=== PATIENT | female | born 1990 | race Caucasian/White ===

== ENCOUNTER 2017-01-21 05:31 | Day surgery (SDC) | payer OTHER ==
[2017-01-14 09:32] LABS: HEMOGLOBIN 13.2 g/dL (12.0-15.5); HGB HCT DIFFERENCE -2.4; MEAN CORPUSCULAR HEMOGLOBIN 24.4 pg (27.0-33.4); MEAN CORPUSCULAR HGB CONC 31.3 g/dL (32.0-36.0); MEAN CORPUSCULAR VOLUME 78 fl (80-97); RED BLOOD COUNT 5.38 10^6/uL (3.72-5.28); RED CELL DISTRIBUTION WIDTH 15.4 % (11.5-14.0); WHITE BLOOD COUNT 8.3 10^3/uL (4.0-10.5)
[2017-01-14 09:49] LABS: ANION GAP 12 (5-19); BLOOD UREA NITROGEN 12 mg/dL (7-20); CALCIUM 9.1 mg/dL (8.4-10.2); CARBON DIOXIDE 22 mmol/L (22-30); CHLORIDE 107 mmol/L (98-107); CREATININE RESULT 0.76 mg/dL (0.52-1.25); GLUCOSE 119 mg/dL (75-110); SODIUM 140.7 mmol/L (137-145)
[~2017-01-21 05:31] MED LIST: LIDOCAINE 0.5% INJ-PF (5 MG/ML) 50 ML SDV INJ PRN; RINGERS SOLUTION,LACTATED 1,000 ML IV PRN
[2017-01-21] MEDS ORDERED: BACITRACIN INJ 50,000 UNIT VIAL ONE (07:11)
[2017-01-21] MEDS ORDERED: LIDOCAINE 0.5% INJ-PF (5 MG/ML) 50 ML SDV ONE (07:11)
[2017-01-21] MEDS ORDERED: BUPIVACAINE HCL 0.25 % INJ/PF (2.5 MG/1 ML) 30 ML VIAL ONE (07:11)
[2017-01-21] MEDS ORDERED: POLYMYXIN B SULFATE INJ 500000 UNIT VIAL ONE (07:11)
[2017-01-21] MEDS ORDERED: KETAMINE HCL INJ 500 MG/10 ML VIAL ONE (07:41)
[2017-01-21] MEDS ORDERED: MIDAZOLAM 2 MG/2 ML INJ ONE (07:42)
[2017-01-21] MEDS ORDERED: DEXMEDETOMIDINE INJ 80 MCG/20 ML VIAL IV ONE (07:42)
[2017-01-21] MEDS ORDERED: PROPOFOL INJ 200 MG/20 ML VIAL IV ONE (07:42)
[2017-01-21] MEDS ORDERED: MORPHINE SULFATE 10 MG/ML INJ ONE (07:43)
[2017-01-21] MEDS ORDERED: CEFAZOLIN INJ 1 GM VIAL ONE (08:17)
--- NOTE | 2017-01-21 08:54 | PDOC DISCHARGE SUMMARY ---
Discharge Summary (SDC) - Discharge Final Diagnosis: Large symptomatic lipoma of the anterior abdominal wall. Date of Surgery: 01/21/17 Discharge Date: 01/21/17 Condition: Good Treatment or Instructions: Discharge home [after recovery per ASU criteria]. Diet [renal],as tolerated, when fully awake advance as tolerated. Activities within moderation encouraged. Medications per medication reconciliation sheet. Percocet prescription. Follow up in my office by appointment in about [1 week]. Call for appointment. Leave wounds [covered], [keep clean and dry, until office visit in 1 week]. Hold of on school/work [until evaluation in office]. May shower [in 48 hrs], [try to keep operated area as dry as possible]. Prescriptions: Oxycodone HCl/Acetaminophen [Percocet 5-325 mg Tablet] 1 tab PO ASDIR PRN #7 tab PRN Reason: Referrals: ROSSANA JC PA-C [Primary Care Provider] - Respiratory Treatments at Home: Deep Breathing/Coughing Discharge Activity: Activity As Tolerated Report the Following to Your Physician Immediately: Shortness of Breath, Unusual Bleeding, Drainage-Yellow
--- NOTE | 2017-01-21 09:39 | Operative Report ---
Operative Report DATE OF SURGERY: 01/21/17 PREOPERATIVE DIAGNOSIS: #1 abdominal wall lipoma, large, symptomatic. POSTOPERATIVE DIAGNOSIS: #1 abdominal wall lipoma, large, symptomatic. OPERATION: Resection of large abdominal wall lipoma. SURGEON: MARU BOSWELL LABORER PLUMBING: None ANESTHESIA: LMAC TISSUE REMOVED OR ALTERED: Large lipoma of the abdominal wall. COMPLICATIONS: None ESTIMATED BLOOD LOSS: 10 mL. INTRAOPERATIVE FINDINGS: Of a large subcutaneous lipoma situated in the left upper abdomen. Measuring in aggregate 10 x 10 x 6 cm. Lobulated. Excised to satisfaction. PROCEDURE: PROCEDURE: The left upper abdomen was prepared with [chlorhexidine] and draped out with sterile linen. After the"universal time-out", in which it was confirmed that the patient [did receive antibiotic], the procedure commenced. The patient was appropriately anesthetized. The lesion was sketched in marking ink, as well as the proposed incision. A dilute solution of local anesthesia was generously infiltrated in the skin and subcutaneous tissues above and around the mass. An incision was made transversely . This went through to the subcutaneous tissues. Dissection now proceeded in the subcutaneous tissue circumferentially around the mass and then finally posterior to it. In this way the entire mass was [removed and submitted for pathology . . The wound was irrigated with [saline] . Meticulous hemostasis was secured in the wound. This was done using [cautery and also interrupted sutures of 3-0 PDS]. [The wound was irrigated once more with sterile saline solution]. The wound was now closed using [a single layer of interrupted vertical mattress sutures. These were of 3-0 PDS]. A sterile dressing was applied and the procedure concluded.
[2017-01-21] MEDS ORDERED: OXYCODONE-ACETAMINOPHEN 5-325 MG TABLET PO PRN (10:00)
[2017-01-21] MEDS ORDERED: ONDANSETRON HCL INJ/PF 4 MG/2 ML SDV ONE (10:41)
[2017-01-21] MEDS ORDERED: METOCLOPRAMIDE HCL INJ/PF 10 MG/2 ML SDV ONE (10:41)
[2017-01-21] MEDS ORDERED: GLYCOPYRROLATE INJ 0.4 MG/2 ML VIAL ONE (10:41)
[2017-01-21] MEDS ORDERED: SUCCINYLCHOLINE CHLORIDE INJ 200 MG/10 ML VIAL ONE (10:41)
[2017-01-21] MEDS ORDERED: LIDOCAINE 2% INJ-PF (20 MG/ML) 10 ML AMPUL ONE (10:41)
[2017-01-21] MEDS ORDERED: ONDANSETRON 4 MG TAB.RAPDIS ONE (11:14)
[2017-01-21 11:58] VITALS: BP 126/79
== END 2017-01-21 12:45 | disposition home or self-care (01) ==
LOC: OROUT 05:31
PROVIDERS: ATTEND Surgery
PROC: 0JB80ZZ Excision of Abdomen Subcutaneous Tissue and Fascia, Open Approach (ICD-10-PCS; principal; 2017-01-21 07:30)
DX: D17.9 Benign lipomatous neoplasm, unspecified (principal); I83.899 Varicose veins of unspecified lower extremity with other complications; G43.909 Migraine, unspecified, not intractable, without status migrainosus; F17.210 Nicotine dependence, cigarettes, uncomplicated; Z79.899 Other long term (current) drug therapy; D17.1 Benign lipomatous neoplasm of skin and subcutaneous tissue of trunk
CPT/HCPCS: 36415; 85027; 81025; 80048; 88305 ×2; 11406; J2250; J3490 ×5; J0690; S0119; J2765; J2270; J0330; J2405; J2704; 400

== ENCOUNTER 2017-08-08 20:34 | Emergency (ER) | payer OTHER ==
[2017-08-08] MEDS ORDERED: DIPHENHYDRAMINE HCL 50 MG/ML VIAL IV ONE (21:57)
[2017-08-08] MEDS ORDERED: NORMAL SALINE 1000 ML 1,000 ML IV ONE (21:57)
[2017-08-08] MEDS ORDERED: PROCHLORPERAZINE EDISYLATE INJ 10 MG/2 ML VIAL IV ONE (21:57)
[2017-08-08] MEDS ORDERED: KETOROLAC TROMETHAMINE 60 MG/2 ML SDV IV ONE (21:57)
--- NOTE | 2017-08-08 21:57 | ER Document Report ---
ED Headache - General Chief Complaint: Headache >24 hrs old Stated Complaint: NECK/SHOULDER/HEAD PAIN Time Seen by Provider: 08/08/17 21:46 Mode of Arrival: Ambulatory Information source: Patient Notes: Patient is a 27-year-old female with a history of migraines who presents to the ER today for 5 days of a migraine. Patient was seen 5 days ago at urgent care migraine and was diagnosed with a sinus infection, given Augmentin. She does state she had congestion and sinus pressure at that time. She states that the congestion and sinus pressure are gone now but the headache has remained. She takes no prescription medications for her migraines, has tried ibuprofen and Tylenol without relief. She states that now the pain is radiating down the left side of her neck into her left shoulder. She states that it feels "like a vice around the head." She is having pressure behind her right eye and light sensitivity. She denies any sound sensitivity, nausea, vomiting or blurred vision. TRAVEL OUTSIDE OF THE [place] IN LAST 30 DAYS: No - Related Data Allergies/Adverse Reactions: iodine [Iodine] Allergy (Verified 08/08/17 20:37) seafood Allergy (Uncoded 08/08/17 20:37) difficulty breathing and hives Past Medical History - General Information source: Patient - Social History Smoking Status: Unknown if Ever Smoked Family History: Arthritis, CAD, CVA, DM, Hyperlipidemia, Hypertension, Malignancy, Thyroid Disfunction - Past Medical History Cardiac Medical History: Reports: Hx Hypercholesterolemia Denies: Hx Coronary Artery Disease, Hx Heart Attack, Hx Hypertension Pulmonary Medical History: Reports: Hx Pneumonia Denies: Hx Asthma, Hx Bronchitis, Hx COPD Neurological Medical History: Denies: Hx Cerebrovascular Accident, Hx Seizures GI Medical History: Reports: Hx Gastroesophageal Reflux Disease Musculoskeltal Medical History: Denies Hx Arthritis, Reports Hx Musculoskeletal Deformity - Scoliosis, Reports Hx Musculoskeletal Trauma - torn MCL in right knee - Immunizations Immunizations up to date: Yes Hx Diphtheria, Pertussis, Tetanus Vaccination: Yes Review of Systems - Review of Systems Constitutional: No symptoms reported EENT: No symptoms reported Cardiovascular: No symptoms reported Respiratory: No symptoms reported Gastrointestinal: No symptoms reported Genitourinary: No symptoms reported Female Genitourinary: No symptoms reported Musculoskeletal: No symptoms reported Skin: No symptoms reported Hematologic/Lymphatic: No symptoms reported Neurological/Psychological: See HPI Physical Exam - Notes Notes: PHYSICAL EXAMINATION: GENERAL: Uncomfortable appearing, lying in dark room, but in no acute distress. HEAD: Atraumatic, normocephalic. EYES: Light-sensitive, pupils equal round and reactive to light, extraocular movements intact, sclera anicteric, conjunctiva are normal. ENT: ear canals without erythema or foreign body, TMs pearly nelson with good bony landmarks, nares patent, oropharynx clear without exudates. Moist mucous membranes. NECK: Normal range of motion, supple without lymphadenopathy LUNGS: CTAB and equal. No wheezes rales or rhonchi. HEART: Regular rate and rhythm without murmurs ABDOMEN: Soft, no tenderness. No guarding, no rebound EXTREMITIES: Normal range of motion, no pitting edema. No cyanosis. NEUROLOGICAL: Cranial nerves grossly intact. Normal sensory/motor exams. PSYCH: Normal mood, normal affect. SKIN: Warm, Dry, normal turgor, no rashes or lesions noted Course - Re-evaluation Re-evalutation: 08/08/17 23:53 Patient states she feels better after IV fluids, Benadryl, Compazine and Toradol. Patient will go home with a prescription for Phenergan in case she needs something else for the migraine when she gets home. Discharge - Discharge Clinical Impression: Migraine Qualifiers: Migraine type: unspecified Status migrainosus presence: without status migrainosus Intractability: not intractable Qualified Code(s): G43.909 - Migraine, unspecified, not intractable, without status migrainosus Condition: Stable Disposition: HOME, SELF-CARE Additional Instructions: Return immediately for any new or worsening symptoms. Follow up with primary care provider, call tomorrow to make followup appointment. Prescriptions: Promethazine HCl [Phenergan 25 mg Tablet] 1 - 2 tab PO Q6H PRN #15 tablet PRN Reason: Forms: Return to Work
[2017-08-09 01:38] VITALS: BP 127/77
== END 2017-08-09 00:19 | disposition home or self-care (01) ==
LOC: ER 20:34
DX: G43.909 Migraine, unspecified, not intractable, without status migrainosus (principal); M54.2 Cervicalgia; R09.81 Nasal congestion; M25.512 Pain in left shoulder; H57.11 Ocular pain, right eye
CPT/HCPCS: 99284; 96361; 96374; 96375; J1200; J1885; J0780; J7030

== ENCOUNTER 2017-08-16 07:11 | Emergency (ER) | payer OTHER ==
[2017-08-16] MEDS ORDERED: ASPIRIN 81 MG TABLET, CHEWABLE PO ONE (07:39)
--- NOTE | 2017-08-16 08:04 | ER Document Report ---
ED General - General Chief Complaint: Chest Pain Stated Complaint: CHEST PAIN Time Seen by Provider: 08/16/17 07:34 Mode of Arrival: Ambulatory Information source: Patient Notes: Patient presents to the emergency department with complaints of midsternal right -sided chest pain, epigastric pain. Reports symptoms started yesterday. She reports it started after she was eating pork at work. Reports she has a cough or runny nose. Denies fever vomiting diarrhea. Reports she feels itchy all over. Reports she was taking Augmentin for sinus infection and then she is now taking Bactrim for an abscess on the top of her head. She started taking this on . No rashes noted. Patient speaking in clear voice. Patient reports she is unsure of her father's family history but grandma had cardiac disease. Mothers side of family has had gallbladder issues. TRAVEL OUTSIDE OF THE [place] IN LAST 30 DAYS: No - HPI Onset: Yesterday Quality of pain: Achy Severity: Mild Associated symptoms: None Exacerbated by: Denies Relieved by: Denies Similar symptoms previously: No Recently seen / treated by doctor: No - Related Data Allergies/Adverse Reactions: iodine [Iodine] Allergy (Verified 08/08/17 20:37) seafood Allergy (Uncoded 08/08/17 20:37) difficulty breathing and hives Past Medical History - General Information source: Patient Last Menstrual Period: last week - Social History Smoking Status: Unknown if Ever Smoked Cigarette use (# per day): No Frequency of alcohol use: None Drug Abuse: None Occupation: [employer] Lives with: Family Family History: Arthritis, CAD, CVA, DM, Hyperlipidemia, Hypertension, Malignancy, Thyroid Disfunction - Past Medical History Cardiac Medical History: Reports: Hx Hypercholesterolemia Denies: Hx Coronary Artery Disease, Hx Heart Attack, Hx Hypertension Pulmonary Medical History: Reports: Hx Pneumonia Denies: Hx Asthma, Hx Bronchitis, Hx COPD Neurological Medical History: Reports: Hx Migraine. Denies: Hx Cerebrovascular Accident, Hx Seizures Renal/ Medical History: Denies: Hx Peritoneal Dialysis GI Medical History: Reports: Hx Gastroesophageal Reflux Disease Musculoskeltal Medical History: Denies Hx Arthritis, Reports Hx Musculoskeletal Deformity - Scoliosis, Reports Hx Musculoskeletal Trauma - torn MCL in right knee Surgical Hx: Negative - Immunizations Immunizations up to date: Yes Hx Diphtheria, Pertussis, Tetanus Vaccination: Yes Review of Systems - Review of Systems Notes: Review HPI for review of systems., All other systems negative Physical Exam - Vital signs Vitals: Temp Pulse Resp BP Pulse Ox 98.7 F 74 20 130/70 H 98 08/16/17 07:16 08/16/17 07:16 08/16/17 07:16 08/16/17 07:16 08/16/17 07:16 - Notes Notes: PHYSICAL EXAMINATION: GENERAL: Well-appearing and in no acute distress HEAD: Atraumatic, normocephalic. EYES: Pupils equal round , extraocular movements intact, sclera anicteric, conjunctiva are normal. ENT: nares patent, Moist mucous membranes. NECK: Normal range of motion, supple without lymphadenopathy LUNGS: CTAB and equal. No wheezes rales or rhonchi. HEART: Regular rate and rhythm without murmurs ABDOMEN: Soft,RUQ ttp. No guarding, no rebound BACK: Denies pain EXTREMITIES: Normal range of motion, no pitting edema. No cyanosis. NEUROLOGICAL: Cranial nerves grossly intact. Normal sensory/motor exams. PSYCH: Normal mood, normal affect. SKIN: Warm, Dry, normal turgor, no rashes or lesions noted, top of head with slight firm swelling, no pustule, no obvious abscess Course - Re-evaluation Re-evalutation: 08/16/17 Labs unremarkable ultrasound negative chest x-ray negative. Patient was instructed on ibuprofen importance of follow-up with primary care provider. She verbalized understanding tall instructions. - Vital Signs Vital signs: Temp Pulse Resp BP Pulse Ox 98.7 F 74 20 109/70 97 08/16/17 07:16 08/16/17 07:16 08/16/17 10:11 08/16/17 10:11 08/16/17 10:11 - Laboratory Result Diagrams: 08/16/17 09:17 08/16/17 09:17 Laboratory results interpreted by me: 08/16/17 08/16/17 08/16/17 08:10 09:17 09:17 RBC 5.29 H MCV 76 L MCH 24.7 L RDW 15.9 H Chloride 109 H Carbon Dioxide 21 L Urine Ascorbic Acid 40 H - Diagnostic Test Radiology reviewed: Image reviewed, Reports reviewed - Diagnostic report text EXAM DESCRIPTION: U/S ABDOMEN LIMITED W/O DOP COMPLETED DATE/TIME: 08/16/2017 9 :16 am REASON FOR STUDY: chest pain,RUQ pain COMPARISON: 09/22/2014 TECHNIQUE: Dynamic and static grayscale images acquired of the right upper quadrant and recorded on PACS. Additional selected color Doppler and spectral images recorded. LIMITATIONS: Study limited due to acoustical interference from fat or from air in the bowel. FINDINGS: PANCREAS: Parts or all of the pancreas poorly seen secondary to acoustical interference from fat or from air in the bowel. LIVER: Echotexture is coarse with increased echogenicity consistent with fatty infiltration. No masses. LIVER VASCULATURE: Normal directional flow of the main portal vein and hepatic veins. GALLBLADDER: No stones. Normal wall thickness. No pericholecystic fluid. ULTRASOUND-DETECTED WILLETT'S SIGN: Negative. INTRAHEPATIC DUCTS AND COMMON DUCT: CBD and intrahepatic ducts normal caliber. No filling defects. INFERIOR VENA CAVA: Normal flow. AORTA: No aneurysm. RIGHT KIDNEY: Normal size. Normal echogenicity. No solid or suspicious masses. No hydronephrosis. No calcifications. PERITONEAL CAVITY AND RIGHT PLEURAL SPACE: No ascites or effusions. OTHER: No other significant finding. IMPRESSION: FATTY LIVER. PANCREAS PARTIALLY OR COMPLETELY OBSCURED. OTHERWISE NORMAL RIGHT UPPER QUADRANT ULTRASOUND EXAM DESCRIPTION: CHEST PA/LAT COMPLETED DATE/TIME: 08/16 8:34 am REASON FOR STUDY: chest pain COMPARISON: 07/08/2016 EXAM PARAMETERS: NUMBER OF VIEWS: two views TECHNIQUE: Digital Frontal and Lateral radiographic views of the chest acquired. RADIATION DOSE: NA LIMITATIONS: none FINDINGS: LUNGS AND PLEURA: No opacities, masses or pneumothorax. No pleural effusion. MEDIASTINUM AND HILAR STRUCTURES: No masses or contour abnormalities. HEART AND VASCULAR STRUCTURES: Heart normal size. No evidence for failure. BONES: No acute findings. HARDWARE: None in the chest. OTHER: No other significant finding. IMPRESSION: NO SIGNIFICANT RADIOGRAPHIC FINDING IN THE CHEST. - EKG Interpretation by Pr EKG shows normal: Sinus rhythm Discharge - Discharge Clinical Impression: Epigastric pain Chest pain Qualifiers: Chest pain type: unspecified Qualified Code(s): R07.9 - Chest pain, unspecified Condition: Stable Disposition: HOME, SELF-CARE Instructions: Chest Pain of Unclear Cause ([facility]), Evaluation of Upper Abdominal Pain ([facility]), Low-Fat Diet ([facility]) Additional Instructions: *You have been evaluated for abdominal pain, chest pains *Liquid diet, advance to low fat diet as tolerated *Follow up with a primary care provider Friday *Return to ED for worsening condition, changes, needs *Return to ED if not better in 24 hours Forms: Return to Work Referrals: ROSSANA JC PA-C [Primary Care Provider] - 08/18/17
--- NOTE | 2017-08-16 08:42 | RADIOLOGY REPORT (SQ) ---
EXAM DESCRIPTION: CHEST PA/LAT COMPLETED DATE/TIME: 08/16/2017 8:34 am REASON FOR STUDY: chest pain COMPARISON: 07/08/2016 EXAM PARAMETERS: NUMBER OF VIEWS: two views TECHNIQUE: Digital Frontal and Lateral radiographic views of the chest acquired. RADIATION DOSE: NA LIMITATIONS: none FINDINGS: LUNGS AND PLEURA: No opacities, masses or pneumothorax. No pleural effusion. MEDIASTINUM AND HILAR STRUCTURES: No masses or contour abnormalities. HEART AND VASCULAR STRUCTURES: Heart normal size. No evidence for failure. BONES: No acute findings. HARDWARE: None in the chest. OTHER: No other significant finding. IMPRESSION: NO SIGNIFICANT RADIOGRAPHIC FINDING IN THE CHEST. TECHNICAL DOCUMENTATION: JOB ID: [id number] [employer]- All Rights Reserved
--- NOTE | 2017-08-16 09:27 | RADIOLOGY REPORT (SQ) ---
EXAM DESCRIPTION: U/S ABDOMEN LIMITED W/O DOP COMPLETED DATE/TIME: 08/16/2017 9:16 am REASON FOR STUDY: chest pain,RUQ pain COMPARISON: 09/22/2014 TECHNIQUE: Dynamic and static grayscale images acquired of the right upper quadrant and recorded on PACS. Additional selected color Doppler and spectral images recorded. LIMITATIONS: Study limited due to acoustical interference from fat or from air in the bowel. FINDINGS: PANCREAS: Parts or all of the pancreas poorly seen secondary to acoustical interference fr om fat or from air in the bowel. LIVER: Echotexture is coarse with increased echogenicity consistent with fatty infiltration. No mass es. LIVER VASCULATURE: Normal directional flow of the main portal vein and hepatic veins. GALLBLADDER: No stones. Normal wall thickness. No pericholecystic fluid. ULTRASOUND-DETECTED WILLETT'S SIGN: Negative. INTRAHEPATIC DUCTS AND COMMON DUCT: CBD and intrahepatic ducts normal caliber. No filling defects. INFERIOR VENA CAVA: Normal flow. AORTA: No aneurysm. RIGHT KIDNEY: Normal size. Normal echogenicity. No solid or suspicious masses. No hydronephrosis. No calcifications. PERITONEAL CAVITY AND RIGHT PLEURAL SPACE: No ascites or effusions. OTHER: No other significant finding. IMPRESSION: FATTY LIVER. PANCREAS PARTIALLY OR COMPLETELY OBSCURED. OTHERWISE NORMAL RIGHT UPPER NGUYEN DRANT ULTRASOUND. TECHNICAL DOCUMENTATION: JOB ID: [id number] [employer]- All Rights Reserved
[2017-08-16 09:44] LABS: ABSOLUTE EOSINOPHILS # (AUTO) 0.2 10^3/uL (0.0-0.6); ABSOLUTE LYMPHOCYTES (AUTO) 1.9 10^3/uL (0.5-4.7); ABSOLUTE MONOCYTES (AUTO) 0.5 10^3/uL (0.1-1.4); ABSOLUTE NEUT (AUTO) 4.6 10^3/uL (1.7-8.2); BASOPHILS % (AUTO) 0.6 % (0-2); EOSINOPHILS % (AUTO) 2.2 % (0-6); HEMATOCRIT 40.1 % (36.0-47.0); HEMOGLOBIN 13.1 g/dL (12.0-15.5); LYMPHOCYTES % (AUTO) 25.7 % (13-45); MEAN CORPUSCULAR HEMOGLOBIN 24.7 pg (27.0-33.4); MEAN CORPUSCULAR HGB CONC 32.6 g/dL (32.0-36.0); MEAN CORPUSCULAR VOLUME 76 fl (80-97); MONOCYTES % (AUTO) 7.3 % (3-13); PLATELET COUNT 281 10^3/uL (150-450); RED BLOOD COUNT 5.29 10^6/uL (3.72-5.28); RED CELL DISTRIBUTION WIDTH 15.9 % (11.5-14.0); SEGMENTED NEUTROPHILS % (AUTO) 64.2 % (42-78); TOTAL CELLS COUNTED % (AUTO) 100 %; WHITE BLOOD COUNT 7.2 10^3/uL (4.0-10.5)
[2017-08-16 09:47] LABS: APPEARANCE,URINE CLEAR; BILIRUBIN,URINE NEGATIVE (NEGATIVE); COLOR,URINE YELLOW; GLUCOSE, URINE NEGATIVE (NEGATIVE); KETONES,URINE NEGATIVE (NEGATIVE); LEUKOCYTE ESTERASE,URINE NEGATIVE (NEGATIVE); NITRITE,URINE NEGATIVE (NEGATIVE); PROTEIN,URINE NEGATIVE (NEGATIVE); URINE SPECIFIC GRAVITY 1.014; UROBILINOGEN,URINE NEGATIVE mg/dL (<2.0)
[2017-08-16 09:57] LABS: ALANINE AMINOTRANSFERASE 37 U/L (9-52); ALKALINE PHOSPHATASE 58 U/L (38-126); ANION GAP 10 (5-19); ASPARTATE AMINO TRANSFERASE 19 U/L (14-36); BILIRUBIN,DIRECT 0.2 mg/dL (0.0-0.4); BILIRUBIN,TOTAL 0.3 mg/dL (0.2-1.3); BLOOD UREA NITROGEN 10 mg/dL (7-20); CALCIUM 9.7 mg/dL (8.4-10.2); CARBON DIOXIDE 21 mmol/L (22-30); CHLORIDE 109 mmol/L (98-107); GLUCOSE 83 mg/dL (75-110); POTASSIUM 4.3 mmol/L (3.6-5.0); SODIUM 139.9 mmol/L (137-145); TOTAL PROTEIN 6.8 g/dL (6.3-8.2)
--- NOTE | 2017-08-16 10:19 | EKG REPORT ---
SEVERITY:- NORMAL ECG - SINUS RHYTHM : Confirmed by: Mendez Watson 16-Aug-2017 10:17:23
[2017-08-16 10:37] VITALS: BP 109/70
== END 2017-08-16 10:43 | disposition home or self-care (01) ==
LOC: ER 07:11
DX: R07.9 Chest pain, unspecified (principal); R10.13 Epigastric pain; R05 Cough; R09.89 Other specified symptoms and signs involving the circulatory and respiratory systems
CPT/HCPCS: 36415; 71046; 76705; 80053; 81001; 84703; 85025; 93005; 93010; 99285

== ENCOUNTER → 2017-11-21 | Outpatient (CLI) | payer OTHER ==
--- NOTE | 2017-11-22 15:17 | RADIOLOGY REPORT (SQ) ---
EXAM DESCRIPTION: MRI RT LOWER JOINT WITHOUT COMPLETED DATE/TIME: 11/21/2017 5:10 pm REASON FOR STUDY: M25.561 PAIN IN RIGHT KNEE M25.561 PAIN IN RIGHT KNEE COMPARISON: None. TECHNIQUE: Rightknee images acquired and stored on PACS. Multiplanar images include fat sensitive s equences as T1, water sensitive sequences as FST2 or STIR, cartilage sensitive sequences as FSPD, and gradient echo sequences. LIMITATIONS: None. FINDINGS: JOINT AND BURSAE: No effusion. BONE CORTEX AND MARROW: No alteration of signal to suggest marrow replacement. No worrisome bone lesi ons. No occult fracture. ACL: Intact. No degeneration or ganglion cyst. PCL: Intact. MCL: Intact. No periligamentous edema or fluid. LCL: Intact. No periligamentous edema or fluid. MEDIAL MENISCUS: No tears. No abnormal signal. LATERAL MENISCUS: No tears. No abnormal signal. MEDIAL COMPARTMENT: Heterogeneous signal in the cartilage. Small osteophytes femoral condyle. LATERAL COMPARTMENT: Cartilage preserved. No bone bruises or reactive marrow edema. No osteophytes. PATELLA: No chondromalacia. No subchondral cysts. Medial and lateral retinacula intact. EXTENSOR MECHANISM: Intact. Quadriceps and patella tendons normal. SOFT TISSUES: Adjacent muscles and subcutaneous tissues normal. Normal flow void in popliteal artery and vein. OTHER: No other significant finding. IMPRESSION: Chondromalacia medial compartment. No acute findings. TECHNICAL DOCUMENTATION: JOB ID: [id number]- All Rights Reserved Reading location - IP[facility]workstation name: [facility]
== END ==
LOC: RAD 16:16
PROVIDERS: ATTEND Orthopaedic Surgery
DX: M25.561 Pain in right knee (principal); M22.41 Chondromalacia patellae, right knee

== ENCOUNTER 2018-10-21 04:03 | Emergency (ER) | payer OTHER ==
[2018-10-21] MEDS ORDERED: LIDOCAINE 4% TOPICAL SOLN 50 ML TOP ONE (05:04)
[2018-10-21] MEDS ORDERED: POLYMYXIN B SULFATE/TMP OPH SOLN (10 ML/ER DISP) OD ONE (06:05)
--- NOTE | 2018-10-21 06:16 | ER Document Report ---
ED Foreign Body - General Chief Complaint: Foreign Body in Ear Stated Complaint: BUG IN EAR Time Seen by Provider: 10/21/18 04:38 Primary Care Provider: LUX CAN MD [ASSOCIATE] - Follow up as needed Notes: Patient is a 28-year-old female presents to the emergency department for which she thinks is a foreign body in her right ear. Patient states she woke up this morning with a scratchy sensation in her right ear. States she feels as though something is moving. Patient states she tried to stick Q-tips in her right ear but continues with the foreign body sensation in her right ear so she presents to the emergency room. Past medical history: None Medications: None Allergies: Shellfish TRAVEL OUTSIDE OF THE [place] IN LAST 30 DAYS: No - Related Data Allergies/Adverse Reactions: iodine [Iodine] Allergy (Verified 08/08/17 20:37) seafood Allergy (Uncoded 08/08/17 20:37) difficulty breathing and hives Past Medical History - General Information source: Patient - Social History Smoking Status: Never Smoker Chew tobacco use (# tins/day): No Frequency of alcohol use: None Drug Abuse: None Family History: Arthritis, CAD, CVA, DM, Hyperlipidemia, Hypertension, Malignancy, Thyroid Disfunction Patient has suicidal ideation: No Patient has homicidal ideation: No - Past Medical History Cardiac Medical History: Reports: Hx Hypercholesterolemia Denies: Hx Coronary Artery Disease, Hx Heart Attack, Hx Hypertension Pulmonary Medical History: Reports: Hx Pneumonia Denies: Hx Asthma, Hx Bronchitis, Hx COPD Neurological Medical History: Reports: Hx Migraine. Denies: Hx Cerebrovascular Accident, Hx Seizures Renal/ Medical History: Denies: Hx Peritoneal Dialysis GI Medical History: Reports: Hx Gastroesophageal Reflux Disease Musculoskeletal Medical History: Denies Hx Arthritis, Reports Hx Musculoskeletal Deformity - Scoliosis, Reports Hx Musculoskeletal Trauma - torn MCL in right knee - Immunizations Immunizations up to date: Yes Hx Diphtheria, Pertussis, Tetanus Vaccination: Yes Review of Systems - Review of Systems Constitutional: No symptoms reported EENT: See HPI Cardiovascular: No symptoms reported Respiratory: No symptoms reported Gastrointestinal: No symptoms reported Genitourinary: No symptoms reported Female Genitourinary: No symptoms reported Musculoskeletal: No symptoms reported Skin: No symptoms reported Hematologic/Lymphatic: No symptoms reported Neurological/Psychological: No symptoms reported Physical Exam - Vital signs Vitals: Temp Pulse Resp BP Pulse Ox 98.4 F 72 14 122/66 99 10/21/18 04:09 10/21/18 04:09 10/21/18 04:09 10/21/18 04:09 10/21/18 04:09 - Notes Notes: GENERAL: Alert, interacts well. No acute distress. HEAD: Normocephalic, atraumatic. EYES: Pupils equal, round, and reactive to light. Extraocular movements intact. ENT: Oral mucosa moist, tongue midline. Nares patent, TM's intact, left TM nonerythematous, nonbulging. Canal within normal limits. Right TM nonerythematous, nonbulging. There does appear to be a small insect in the right canal with its antennae moving. NECK: Full range of motion. Supple. Trachea midline. LUNGS: Clear to auscultation bilaterally, no wheezes, rales, or rhonchi. No respiratory distress. HEART: Regular rate and rhythm. No murmur ABDOMEN: Soft, non-tender. Non-distended. Bowel sounds present in all 4 quadrants. EXTREMITIES: Moves all 4 extremities spontaneously. No edema, normal radial and dorsalis pedis pulses bilaterally. No cyanosis. BACK: no cervical, thoracic, lumbar midline tenderness. No saddle anesthesia, normal distal neurovascular exam. NEUROLOGICAL: Alert and oriented x3. Normal speech. cranial nerves II through XII grossly intact. PSYCH: Normal affect, normal mood. SKIN: Warm, dry, normal turgor. No rashes or lesions noted. Course - Re-evaluation Re-evalutation: 10/21/18 06:11 Lidocaine 4% was placed in the right ear canal to kill the insect. Right canal was then flushed multiple times by nursing staff. Upon reexamination of the right ear canal there does not appear to be any insect or other foreign bodies. Patient's eardrum does appear to not be erythematous but is nonbulging. Discussed use of antibiotic eardrops as prophylactic for infection. Patient voices understanding is stable for discharge. Close return precautions discussed. - Vital Signs Vital signs: Temp Pulse Resp BP Pulse Ox 98.4 F 72 14 122/66 99 10/21/18 04:09 10/21/18 04:09 10/21/18 04:09 10/21/18 04:09 10/21/18 04:09 Discharge - Discharge Clinical Impression: Foreign body in right ear, initial encounter Condition: Stable Disposition: HOME, SELF-CARE Instructions: Foreign Body ([facility]) Additional Instructions: He has been seen and treated in the emergency department for a foreign body in your right ear. I do believe we have been able to flush out the insect. I am going to put you on prophylactic antibiotic eardrops as the ear canal is very susceptible to infection after being irritated. Please make sure you use drops as prescribed and follow-up with your primary care provider in the next 24-48 hours for someone else to examine your eardrum. Please return to the emergency room should you have any other concerning symptoms. Prescriptions: Polymyxin B Sulfate/Tmp [Polytrim Oph Soln 10 ml] 1 dose AD Q6 #1 bottle Referrals: LUX CAN MD [ASSOCIATE] - Follow up as needed
[2018-10-21 06:50] VITALS: BP 122/82
== END 2018-10-21 06:50 | disposition home or self-care (01) ==
LOC: ER 04:03
DX: T16.1XXA Foreign body in right ear, initial encounter (principal); X58.XXXA Exposure to other specified factors, initial encounter
CPT/HCPCS: 99282; J3490 ×2

== ENCOUNTER 2019-02-26 07:12 | Day surgery (SDC) | payer OTHER ==
[2019-02-25 10:05] LABS: APPEARANCE,URINE SLIGHTLY-CLOUDY; BILIRUBIN,URINE NEGATIVE (NEGATIVE); COLOR,URINE YELLOW; GLUCOSE, URINE NEGATIVE (NEGATIVE); KETONES,URINE 20 mg/dL (NEGATIVE); LEUKOCYTE ESTERASE,URINE SMALL (NEGATIVE); NITRITE,URINE NEGATIVE (NEGATIVE); PROTEIN,URINE NEGATIVE (NEGATIVE); URINE SPECIFIC GRAVITY 1.017; UROBILINOGEN,URINE NEGATIVE mg/dL (<2.0)
[2019-02-25 11:01] LABS: HEMATOCRIT 43.3 % (36.0-47.0); HEMOGLOBIN 14.1 g/dL (12.0-15.5); MEAN CORPUSCULAR HGB CONC 32.6 g/dL (32.0-36.0); MEAN CORPUSCULAR VOLUME 77 fl (80-97); PLATELET COUNT 265 10^3/uL (150-450); RED BLOOD COUNT 5.64 10^6/uL (3.72-5.28); RED CELL DISTRIBUTION WIDTH 16.2 % (11.5-14.0); WHITE BLOOD COUNT 6.4 10^3/uL (4.0-10.5)
[~2019-02-26 07:12] MED LIST changes: +FENTANYL CITRATE INJ/PF 250 MCG/5 ML AMPULE ONE; +KETOROLAC TROMETHAMINE 60 MG/2 ML SDV ONE; -LIDOCAINE 0.5% INJ-PF (5 MG/ML) 50 ML SDV INJ PRN; +LIDOCAINE 2% INJ-PF (20 MG/ML) 10 ML AMPUL ONE; +MIDAZOLAM 2 MG/2 ML INJ ONE; -RINGERS SOLUTION,LACTATED 1,000 ML IV PRN
[2019-02-26] MEDS ORDERED: ONDANSETRON HCL INJ/PF 4 MG/2 ML SDV ONE ×2 (07:13→11:42)
[2019-02-26] MEDS ORDERED: SUGAMMADEX SODIUM 200 MG/2 ML SDV IV ONE (07:13)
[2019-02-26] MEDS ORDERED: DEXAMETHASONE SOD PHOSPHATE INJ 4 MG/1 ML VIAL ONE (07:13)
[2019-02-26] MEDS ORDERED: PROPOFOL INJ 200 MG/20 ML VIAL IV ONE (07:14)
[2019-02-26] MEDS ORDERED: BUPIVACAINE HCL 0.25 % INJ/PF (2.5 MG/1 ML) 30 ML VIAL ONE ×2 (07:26→08:52)
[2019-02-26] MEDS ORDERED: SCOPOLAMINE HYDROBROMIDE 1.5 MG PATCH.TD72 ONE (08:21)
[2019-02-26] MEDS ORDERED: BUPIVACAINE HCL 0.25 % INJ/PF (2.5 MG/1 ML) 30 ML VIAL INJ ONE ×2 (09:26)
[2019-02-26] MEDS ORDERED: MEPERIDINE HCL/PF INJ 25 MG/1 ML DISP.SYRIN IV PRN (09:29)
[2019-02-26] MEDS ORDERED: PROMETHAZINE HCL INJ 25 MG/1 ML VIAL IV PRN ×2 (09:29)
[2019-02-26] MEDS ORDERED: FENTANYL CITRATE INJ/PF 100 MCG/2 ML AMPUL IV PRN ×3 (09:29)
[2019-02-26] MEDS ORDERED: DIPHENHYDRAMINE HCL 50 MG/ML VIAL IV PRN (09:29)
--- NOTE | 2019-02-26 11:02 | Operative Report ---
Operative Report DATE OF SURGERY: 02/26/19 PREOPERATIVE DIAGNOSIS: 1. Desires permanent sterilization. 2. Morbid obesity POSTOPERATIVE DIAGNOSIS: Same plus abdominal adhesions around the left fallopian tube OPERATION: Laparoscopic bilateral partial salpingectomy with Endoloops SURGEON: DARRYN ALCOCER [employer] COORDINATOR: JENN KOCH ANESTHESIA: GA TISSUE REMOVED OR ALTERED: Right and left partial fallopian tubes COMPLICATIONS: None ESTIMATED BLOOD LOSS: 50 ml INTRAOPERATIVE FINDINGS: Deep abdomen with peritoneal adhesions around the left fallopian tube PROCEDURE: The patient was taken to the operating room where general anesthesia was obtained without difficulty. She was then placed in dorsal supine lithotomy position and prepped and draped in the normal sterile fashion. Jacob speculum was then placed in the patient's vagina and the anterior lip of the cervix grasped with a single-tooth tenaculum. An acorn uterine manipulator was then advanced into the uterus to provide a means of manipulation of the uterus. The tenaculum were then removed from the patient's cervix and vagina. Attention was then turned to the patient's abdomen where a 5 mm skin incision was then made in the umbilicus. The Optiview trocar with 0 laparoscope was then advanced with difficulty secondary to her morbid obesity. I used the longest 5 mm trocar available and still cannot gain entry. I then cut down layer by layer and was able to enter the peritoneal cavity. Patient's abdomen was very heavy and I was wrapped in some omentum, therefore I was not able to pull back on the scope to perform the procedure. I then called in Dr. Koch, who replaced the Jack trocar under direct visualization with the Optiview trocar. This was performed while tenting the abdominal wall. Intraperitoneal placement was confirmed by the direct visualization. Pneumoperitoneum was then obtained with approximately 4 L carbon dioxide gas. Survey of the patient's abdomen and pelvis revealed findings as noted above. Two 5 mm lateral ports were placed under direct visualization. The right fallopian tube was then identified and followed out to the fimbriated end. A PDS Endoloop was placed at the fimbriated end, abutting the ovary. The tube was the transected and the Endoloop cut. Hemostasis was noted. The right partial tube was removed through the trocar and handed off to the OR Tech. Attention was then turned to the left fallopian tube which was adhesed to the peritoneal wall. Blunt dissection freed the tube and it was then transected in the same manner. The tube was also handed to the OR Tech also. All operative sites were visualized and noted to be hemostatic. The CO2 gas was then turned off and allowed to escape from the patient's abdomen. All trocars were then removed. The skin at all trocar sites were closed with 4-0 Vicryl in a subcuticular fashion with overlying Dermabond. No antibiotics were indicated for this procedure. After completion of skin closure of the trocar sites attention was then turned to the vagina where the acorn uterine manipulator was removed and the bivalve speculum was replaced. The tenaculum sites were hemostatic and the speculum was removed. Sponge, lap, needle and instrument counts were correct 3. The patient tolerated the procedure well and was taken to the recovery area awake and in stable condition. Dr. Koch's licensed nursing assistant was instrumental in up we may need to accomplish the surgery secondary to the patient's morbid obesity and her heavy abdominal wall.
[2019-02-26] MEDS ORDERED: FENTANYL CITRATE INJ/PF 100 MCG/2 ML AMPUL ONE (11:04)
[2019-02-26] MEDS ORDERED: ACETAMINOPHEN 1,000 MG/100 ML RTUPB IV ONE (11:19)
[2019-02-26] MEDS ORDERED: OXYCODONE-ACETAMINOPHEN 5-325 MG TABLET PO PRN (11:25)
[2019-02-26] MEDS ORDERED: OXYCODONE-ACETAMINOPHEN 5-325 MG TABLET ONE (12:16)
[2019-02-26 14:04] VITALS: BP 138/72
[2019-02-26] MEDS ORDERED: ROCURONIUM BROMIDE INJ 50 MG/5 ML VIAL IV ONE (14:14)
[2019-02-26] MEDS ORDERED: SUCCINYLCHOLINE CHLORIDE INJ 200 MG/10 ML VIAL ONE (14:14)
== END 2019-02-26 14:06 | disposition home or self-care (01) ==
LOC: OROUT 07:12
PROVIDERS: ATTEND Obstetrics & Gynecology
DX: Z30.2 Encounter for sterilization (principal); N73.6 Female pelvic peritoneal adhesions (postinfective); E78.00 Pure hypercholesterolemia, unspecified; Z87.891 Personal history of nicotine dependence; E66.01 Morbid (severe) obesity due to excess calories; Z68.41 Body mass index [BMI] 40.0-44.9, adult
CPT/HCPCS: 86900; 86901; 36415; 86850; 85027; 81025; 81001; 88302 ×2; 00851; 58671; J2250; J3490 ×3; J1100; J1885; J3010; J0330; J2405; J2704; J0131; 851

== ENCOUNTER 2019-08-08 20:25 | Emergency (ER) | payer OTHER ==
--- NOTE | 2019-08-08 20:51 | ER Document Report ---
ED Medical Screen (RME) - General Chief Complaint: Abdominal Pain Stated Complaint: ABDOMINAL PAIN Time Seen by Provider: 08/08/19 20:46 Primary Care Provider: JEFF BONILLA PA-C [Primary Care Provider] - Follow up as needed Mode of Arrival: Ambulatory Information source: Patient Notes: 29-year-old female presents emergency department with complaints of pelvic pain that started approximately 1 hour ago. She reports she has a history of ovarian cyst. She denies fever vomiting diarrhea. Reports that she was having a bowel movement when it started hurting. She reports it does not hurt when she voids but she feels pressure. Denies vaginal discharge, denies vaginal bleeding. I have greeted and performed a rapid initial assessment of this patient. A comprehensive ED assessment and evaluation of the patient, analysis of test results and completion of the medical decision making process will be conducted by additional ED providers. TRAVEL OUTSIDE OF THE [place] IN LAST 30 DAYS: No - Related Data Allergies/Adverse Reactions: iodine [Iodine] Allergy (Verified 02/25/19 10:19) seafood Allergy (Uncoded 02/25/19 10:19) difficulty breathing and hives Past Medical History - Past Medical History Cardiac Medical History: Reports: Hx Hypercholesterolemia Denies: Hx Coronary Artery Disease, Hx Heart Attack, Hx Hypertension Pulmonary Medical History: Reports: Hx Pneumonia Denies: Hx Asthma, Hx Bronchitis, Hx COPD Neurological Medical History: Reports: Hx Migraine. Denies: Hx Cerebrovascular Accident, Hx Seizures Renal/ Medical History: Denies: Hx Peritoneal Dialysis GI Medical History: Reports: Hx Gastroesophageal Reflux Disease Musculoskeltal Medical History: Denies Hx Arthritis, Reports Hx Musculoskeletal Deformity - Scoliosis, Reports Hx Musculoskeletal Trauma - torn MCL in right knee - Immunizations Immunizations up to date: Yes Hx Diphtheria, Pertussis, Tetanus Vaccination: Yes Physical Exam - Vital signs Vitals: Temp Pulse Resp BP Pulse Ox 98.4 F 82 16 123/69 98 08/08/19 20:31 08/08/19 20:08/08/19 20:08/08/19 20:31 08/08/19 20:31 Course - Vital Signs Vital signs: Temp Pulse Resp BP Pulse Ox 98.4 F 82 16 123/69 98 08/08/19 20:31 08/08/19 20:31 08/08/19 20:31 08/08/19 20:31 08/08/19 20:31 Doctor's Discharge - Discharge Referrals: JEFF BONILLA PA-C [Primary Care Provider] - Follow up as needed
[2019-08-08 21:24] LABS: APPEARANCE,URINE CLEAR; BILIRUBIN,URINE NEGATIVE (NEGATIVE); COLOR,URINE STRAW; GLUCOSE, URINE NEGATIVE (NEGATIVE); KETONES,URINE TRACE mg/dL (NEGATIVE); LEUKOCYTE ESTERASE,URINE NEGATIVE (NEGATIVE); NITRITE,URINE NEGATIVE (NEGATIVE); PROTEIN,URINE NEGATIVE (NEGATIVE); URINE SPECIFIC GRAVITY 1.025; UROBILINOGEN,URINE NEGATIVE mg/dL (<2.0)
[2019-08-08 21:26] LABS: ABSOLUTE BASOPHILS # (AUTO) 0.1 10^3/uL (0.0-0.2); ABSOLUTE EOSINOPHILS # (AUTO) 0.2 10^3/uL (0.0-0.6); ABSOLUTE MONOCYTES (AUTO) 0.5 10^3/uL (0.1-1.4); ABSOLUTE NEUT (AUTO) 6.6 10^3/uL (1.7-8.2); BASOPHILS % (AUTO) 0.8 % (0-2); EOSINOPHILS % (AUTO) 1.6 % (0-6); HEMATOCRIT 43.5 % (36.0-47.0); HEMOGLOBIN 14.2 g/dL (12.0-15.5); MEAN CORPUSCULAR HEMOGLOBIN 25.3 pg (27.0-33.4); MEAN CORPUSCULAR HGB CONC 32.6 g/dL (32.0-36.0); MEAN CORPUSCULAR VOLUME 78 fl (80-97); MONOCYTES % (AUTO) 4.9 % (3-13); PLATELET COUNT 276 10^3/uL (150-450); RED CELL DISTRIBUTION WIDTH 17.8 % (11.5-14.0); SEGMENTED NEUTROPHILS % (AUTO) 63.7 % (42-78); TOTAL CELLS COUNTED % (AUTO) 100 %; WHITE BLOOD COUNT 10.4 10^3/uL (4.0-10.5)
[2019-08-08 21:45] LABS: ALBUMIN 4.2 g/dL (3.5-5.0); ALKALINE PHOSPHATASE 79 U/L (38-126); ANION GAP 8 (5-19); ASPARTATE AMINO TRANSFERASE 37 U/L (14-36); BILIRUBIN,DIRECT 0.2 mg/dL (0.0-0.4); BILIRUBIN,TOTAL 0.3 mg/dL (0.2-1.3); BLOOD UREA NITROGEN 15 mg/dL (7-20); CALCIUM 9.9 mg/dL (8.4-10.2); CARBON DIOXIDE 29 mmol/L (22-30); CHLORIDE 102 mmol/L (98-107); GLUCOSE 92 mg/dL (75-110); POTASSIUM 4.8 mmol/L (3.6-5.0); TOTAL PROTEIN 7.2 g/dL (6.3-8.2)
--- NOTE | 2019-08-08 22:45 | RADIOLOGY REPORT (SQ) ---
EXAM DESCRIPTION: US PELVIS TRANSVAGINAL CLINICAL HISTORY: 29 years, Female, hx ovarian cyst pain, LMP 07/08/2019. COMPARISON: None. TECHNIQUE: Transvaginal pelvic ultrasound was performed including color duplex analysis at 2201 hours on 08/08/2019. FINDINGS: The uterus measures 7.2 x 3.6 x 5.2 cm. The cervix measures 3.1 cm in length. The endometrial stripe measures 1.1 cm in thickness. The left ovary measures 3.2 x 2.3 x 2.3 cm. A few images of the left ovary reveal at least one small follicle measuring 0.35 cm in size. Normal color and spectral Doppler flow. The right ovary measures 3.3 x 3.1 x 2.9 cm and contains a simple dominant 1.5 cm cyst. There is normal color and spectral Doppler flow. No adnexal masses or free fluid collections are seen. IMPRESSION: No abnormalities are recognized sonographically. Simple dominant 1.5 cm right ovarian follicular cyst.
[2019-08-08] MEDS ORDERED: IBUPROFEN 800 MG TABLET PO ONE (23:58)
--- NOTE | 2019-08-09 00:04 | ER Document Report ---
ED GI/ - General Chief Complaint: Abdominal Pain Stated Complaint: ABDOMINAL PAIN Time Seen by Provider: 08/08/19 20:46 Primary Care Provider: JEFF BONILLA PA-C [COMMUNITY BASED STAFF] - Follow up tomorrow Mode of Arrival: Ambulatory Notes: 31-year-old female presented to ED for complaint of pelvic pain that started approximately an hour before coming to the emergency room. She states she does have a history of ovarian cyst and believes that is what is going on at this time. Her pain is to the right pelvic. She was alert oriented respirations regular nonlabored speaking in full sentences. She states she is having normal bowel movements and she had a bowel movement before coming into the emergency room when the pain started. She states it does not hurt when she urinates but i t did hurt when she had a bowel movement. She denies any vaginal discharge vaginal bleeding or any other symptoms. TRAVEL OUTSIDE OF THE [place] IN LAST 30 DAYS: No - HPI Patient complains to provider of: Pelvic pain Onset: Just prior to arrival Timing/Duration: Sudden Quality of pain: Sharp Pain Level: 3 Location: Pelvis Vaginal bleeding (Compared to normal period): None - Right pelvis Associated symptoms: Other - Right pelvic pain Exacerbated by: Movement, Other - Bowel movement Relieved by: Denies Similar symptoms previously: Yes Recently seen / treated by doctor: No - Related Data Allergies/Adverse Reactions: iodine [Iodine] Allergy (Verified 02/25/19 10:19) seafood Allergy (Uncoded 02/25/19 10:19) difficulty breathing and hives Past Medical History - General Information source: Patient - Social History Smoking Status: Never Smoker Frequency of alcohol use: None Drug Abuse: None Lives with: Family Family History: Arthritis, CAD, CVA, DM, Hyperlipidemia, Hypertension, Malignancy, Thyroid Disfunction Patient has suicidal ideation: No Patient has homicidal ideation: No - Past Medical History Cardiac Medical History: Reports: Hx Hypercholesterolemia Pulmonary Medical History: Reports: Hx Pneumonia EENT Medical History: Reports: None Neurological Medical History: Reports: Hx Migraine Endocrine Medical History: Reports: None Renal/ Medical History: Reports: Hx Ovarian Cysts Malignancy Medical History: Reports: None GI Medical History: Reports: Hx Gastroesophageal Reflux Disease Musculoskeletal Medical History: Reports Hx Musculoskeletal Deformity - Scoliosis, Reports Hx Musculoskeletal Trauma - torn MCL in right knee Skin Medical History: Reports None Psychiatric Medical History: Reports: None Traumatic Medical History: Reports: None Infectious Medical History: Reports: None Surgical Hx: Negative Past Surgical History: Reports: None - Immunizations Immunizations up to date: Yes Hx Diphtheria, Pertussis, Tetanus Vaccination: Yes Review of Systems - Review of Systems Constitutional: No symptoms reported EENT: No symptoms reported Cardiovascular: No symptoms reported Respiratory: No symptoms reported Gastrointestinal: No symptoms reported Genitourinary: No symptoms reported Female Genitourinary: Other - Right pelvic pain Musculoskeletal: No symptoms reported Skin: No symptoms reported Hematologic/Lymphatic: No symptoms reported Neurological/Psychological: No symptoms reported -: Yes All other systems reviewed and negative Physical Exam - Vital signs Vitals: Temp Pulse Resp BP Pulse Ox 98.4 F 82 16 123/69 98 08/08/19 20:31 08/08/19 20:31 08/08/19 20:31 08/08/19 20:31 08/08/19 20:31 Interpretation: Normal - General General appearance: Appears well, Alert - HEENT Head: Normocephalic, Atraumatic Eyes: Normal Pupils: PERRL - Respiratory Respiratory status: No respiratory distress Chest status: Nontender Breath sounds: Normal Chest palpation: Normal - Cardiovascular Rhythm: Regular Heart sounds: Normal auscultation Murmur: No - Abdominal Inspection: Normal Distension: No distension Bowel sounds: Normal Tenderness: Tender - Right pelvic pain Organomegaly: No organomegaly - Back Back: Normal, Nontender - Extremities General upper extremity: Normal inspection, Nontender, Normal color, Normal ROM, Normal temperature General lower extremity: Normal inspection, Nontender, Normal color, Normal ROM, Normal temperature, Normal weight bearing. No: Carol's sign - Neurological Neuro grossly intact: Yes Cognition: Normal Orientation: AAOx4 [place] Coma Scale Eye Opening: Spontaneous [place] Coma Scale Verbal: Oriented [place] Coma Scale Motor: Obeys Commands Kulwant Coma Scale Total: 15 Speech: Normal Motor strength normal: LUE, RUE, LLE, RLE Sensory: Normal - Psychological Associated symptoms: Normal affect, Normal mood - Skin Skin Temperature: Warm Skin Moisture: Dry Skin Color: Normal Course - Re-evaluation Re-evalutation: 08/09/19 00:39 29-year-old female presented to ED for right pelvic pain. Her ultrasound did show a right ovarian cyst all other testing was negative. Patient was discharged home with ibuprofen and a prescription for ibuprofen and instructions to follow-up with [facility]. - Vital Signs Vital signs: Temp Pulse Resp BP Pulse Ox 98.2 F 72 16 124/74 98 08/09/19 00:05 08/09/19 00:05 08/09/19 00:05 08/09/19 00:05 08/09/19 00:05 - Laboratory Result Diagrams: 08/08/19 20:06 08/08/19 20:06 Laboratory results interpreted by me: 08/08/19 08/08/19 08/08/19 19:05 20:06 20:06 RBC 5.60 H MCV 78 L MCH 25.3 L RDW 17.8 H AST 37 H Urine Ketones TRACE H - Diagnostic Test Radiology reviewed: Image reviewed, Reports reviewed Discharge - Discharge Clinical Impression: Right ovarian cyst Condition: Stable Disposition: HOME, SELF-CARE Additional Instructions: Ovarian Cyst Your examination shows the presence of an ovarian cyst. This is a ball of fluid attached to the ovary. Ovarian cysts in women of child-bearing age are usually innocent. However, the cyst may cause pain when it grows or bursts. An innocent ovarian cyst will usually go away by itself. When the cyst becomes painful, you should rest. Pain medication may be required. Some women find a hot water bottle soothing. The pain usually resolves within one or two days. After menopause, an ovarian cyst may mean a tumor, and requires more aggressive evaluation -- usually surgery is recommended to remove or biopsy the cyst. A very large cyst requires evaluation at any age. Most cysts (even the innocent ones) require follow-up examination. Call the doctor or return at any time if the pain increases significantly, if you become faint, or if you experience vaginal bleeding. Ibuprofen Ibuprofen is an excellent, safe drug for pain control. In addition, it has potent antiinflammatory effects which are beneficial, especially in the treatment of injuries, arthritis, or tendonitis. It's best to take ibuprofen with food. Persons with ulcer disease or allergy to aspirin should notify their physician of this before taking ibuprofen. Take the medication exactly as prescribed. Don't take additional doses unless instructed to do so by your doctor. If you develop wheezing, shortness of breath, hives, faintness, stomach pain, vomiting, or dark black stools, return for re-evaluation at once. Ice Packs Apply ice packs frequently against the painful area. Many different manolo edules are recommended, such as "20 minutes on, 20 minutes off" or "one hour ice, two hours rest." If you need to work, you may need to go longer between ice treatments. You should plan to have the area ice packed AT LEAST one fourth of the time. The ice should be applied over the wrap, tape, or splint, or over a layer of cloth -- not directly against the skin. Some ice bags have a built-in cloth and can be put directly on the skin. Warm Packs After approximately two days, apply gentle heat (such as a heating pad or hot water bottle) for about 20 to 30 minutes about every two hours -- at least four times daily. Warmth and elevation will help you make a more rapid recovery, and will ease the pain considerably. Do not use HOT heat, and never apply heat for longer than 30 minutes. The continuous heat can invisibly damage skin and muscles -- even when no burn is seen on the surface. Damaged muscles can make you MORE sore. FOLLOW-UP CARE: If you have been referred to a physician for follow-up care, call the physicians office for an appointment as you were instructed or within the next two days. If you experience worsening or a significant change in your symptoms, notify the physician immediately or return to the Emergency Department at any time for re-evaluation. Prescriptions: Ibuprofen [Motrin 800 mg Tablet] 800 mg PO Q8H PRN #30 tab PRN Reason: Referrals: JEFF BONILLA PA-C [COMMUNITY BASED STAFF] - Follow up tomorrow
[2019-08-09 00:08] VITALS: BP 124/74
[2019-08-09 01:39] LABS: CHLAM PCR NOT DETECTED (NOT DETECT)
== END 2019-08-09 00:08 | disposition home or self-care (01) ==
LOC: ER 20:25
DX: N83.201 Unspecified ovarian cyst, right side (principal); R10.2 Pelvic and perineal pain; E78.00 Pure hypercholesterolemia, unspecified
CPT/HCPCS: 36415; 76830; 80053; 81001; 81025; 85025; 87491; 87591; 99284